=== PATIENT | male | born 1975 | race African-American/Black ===

== ENCOUNTER 2021-01-06 20:21 | Emergency (ER) | payer OTHER ==
[2021-01-06 21:37] LABS: BASOPHIL 0.6 % (0-2); EOSINOPHIL 1.8 % (0-5); HCT 44.7 % (42.0-52.0); HGB 14.9 g/dl (13.2-18.0); LYMPHOCYTE 21.8 % (15-48); MCH 32.6 pg (25.0-31.0); MCHC 33.3 g/dL (32.0-36.0); MCV 97.8 fL (78.0-100.0); MONOCYTE 14.6 % (0-12); MPV 8.6 fL (6.0-9.5); NEUTROPHIL 60.9 % (41-80); NRBC 0; PLT 170 K/uL (150-400); RBC 4.57 M/uL (4.70-6.00); RDW 12.1 % (11.5-14.0); WBC 7.8 K/uL (4.0-10.5)
[2021-01-06 22:09] LABS: BUN/CREAT RATIO (CALC) 11.2 RATIO; CREATININE 0.8 mg/dL (0.67-1.17)
[2021-01-06] MEDS ORDERED: BACTRIM DS TAB1 EACH PO (22:25)
[2021-01-06] MEDS ORDERED: CEPHALEXIN500 M1 PO (22:25)
== END 2021-01-06 22:35 | disposition home or self-care (01) ==
LOC: FER 20:21
PROVIDERS: Nurse Practitioner Family
DX: S90.464A Insect bite (nonvenomous), right lesser toe(s), initial encounter (principal); L03.031 Cellulitis of right toe; W57.XXXA Bitten or stung by nonvenomous insect and other nonvenomous arthropods, initial encounter
CPT/HCPCS: 36415; 80048; 85025; 99283